=== PATIENT | female | born 1990 | race American Indian/Alaskan Native ===

== ENCOUNTER 2017-04-10 11:43 | Emergency (ER) | payer SELFPAY ==
[2017-04-10 12:36] VITALS: BP 111/76
[2017-04-10] MEDS ORDERED: CLEOCIN PO ONE (13:45)
[2017-04-10] MEDS ORDERED: NORCO 5/325 PO ONE (13:45)
[2017-04-10] MEDS ORDERED: ZOFRAN ODT PO ONE (13:45)
--- NOTE | 2017-04-10 13:49 | Emergency Department Report ---
ED ENT HPI - General Chief complaint: Dental/Oral Stated complaint: ABSCESS Time Seen by Provider: 04/10/17 13:37 Source: patient Mode of arrival: Ambulatory Limitations: No Limitations - History of Present Illness Initial comments: PT c/o L upper toothache and facial swelling. PT states she woke up with these symptoms. PT states she is unable to work due to her pain. PT states her last dental appointment was over 2 years ago and she was told that she needed to have her wisdom teeth removed. PT states she did not follow up with that. PT states she has not taken any medication for her symptoms. MD complaint: other (facial swelling ) -: This morning (woke up with symptoms ) Location: tooth # 1 - severe pain Severity: severe Severity scale (0 -10): 10 Quality: sharp, constant Consistency: constant Improves with: none Worsens with: eating, movement, other (palpation of face ) Context- Dental: history of dental caries, poor dental care Associated Symptoms: fever (pt states she has a fever currently, temp 99.6), sore throat. denies: gum swelling, toothache - Related Data Home Medications Medication Instructions Recorded Confirmed Last Taken Metoprolol Xl 1 tab PO DAILY 11/10/15 11/10/15 11/09/15 09:00 Previous Rx's Medication Instructions Recorded Last Taken Type Acetaminophen/Codeine [Tylenol #3] 1 tab PO Q6H PRN #12 tab 04/10/17 Unknown Rx Clindamycin [Clindamycin CAP] 300 mg PO Q8H #30 cap 04/10/17 Unknown Rx Allergies Allergy/AdvReac Type Severity Reaction Status Date / Time aspirin Allergy Unknown Verified 08/29/15 23:13 ED Dental HPI - General Chief complaint: Dental/Oral Stated complaint: ABSCESS Time Seen by Provider: 04/10/17 13:37 Source: patient Mode of arrival: Ambulatory Limitations: No Limitations - Related Data Home Medications Medication Instructions Recorded Confirmed Last Taken Metoprolol Xl 1 tab PO DAILY 11/10/15 11/10/15 11/09/15 09:00 Previous Rx's Medication Instructions Recorded Last Taken Type Acetaminophen/Codeine [Tylenol #3] 1 tab PO Q6H PRN #12 tab 04/10/17 Unknown Rx Clindamycin [Clindamycin CAP] 300 mg PO Q8H #30 cap 04/10/17 Unknown Rx Allergies Allergy/AdvReac Type Severity Reaction Status Date / Time aspirin Allergy Unknown Verified 08/29/15 23:13 ED Review of Systems ROS: Stated complaint: ABSCESS Other details as noted in HPI Comment: All other systems reviewed and negative Constitutional: fever (99.6). denies: chills Cardiovascular: denies: chest pain Gastrointestinal: abdominal pain (pt states she is hungry, has not eaten today ) . denies: nausea, vomiting, diarrhea, constipation Skin: other (facial swelling ) ED Past Medical Hx - Past Medical History Previous Medical History?: Yes Hx Hypertension: No Hx Diabetes: No Hx Deep Vein Thrombosis: No Hx Renal Disease: No Hx Sickle Cell Disease: No Hx Seizures: Yes Hx Asthma: No Hx HIV: No Additional medical history: SVT - Surgical History Past Surgical History?: Yes Additional Surgical History: Left hand tendon repair - Social History Smoking Status: Current Every Day Smoker Substance Use Type: Alcohol, Marijuana, Non Opiate Pain - Medications Home Medications: Home Medications Medication Instructions Recorded Confirmed Last Taken Type Metoprolol Xl 1 tab PO DAILY 11/10/15 11/10/15 11/09/15 09:00 History Acetaminophen/Codeine [Tylenol #3] 1 tab PO Q6H PRN #12 tab 04/10/17 Unknown Rx Clindamycin [Clindamycin CAP] 300 mg PO Q8H #30 cap 04/10/17 Unknown Rx ED Physical Exam - General Limitations: No Limitations General appearance: alert, in no apparent distress - Head Head exam: Present: atraumatic, normocephalic, other (mild swelling to L maxillary region, + ttp ) - Eye Eye exam: Present: normal appearance, PERRL, EOMI. Absent: conjunctival injection - ENT ENT exam: Present: normal orophraynx, mucous membranes moist - Expanded ENT Exam Expanded TM/Canal exam: Cerumen Impaction: Right TM, Left TM Mouth exam: Absent: drooling, trismus Teeth exam: Present: dental caries (widespread ), dental tenderness # (16) 1 - Dental Tenderness Throat exam: Positive: normal inspection. Negative: tonsillar erythema, tonsillomegaly, tonsillar exudate, R peritonsillar mass - Neck Neck exam: Present: normal inspection, tenderness, full ROM, lymphadenopathy - Respiratory Respiratory exam: Present: normal lung sounds bilaterally. Absent: respiratory distress, chest wall tenderness - Cardiovascular Cardiovascular Exam: Present: regular rate, normal rhythm - GI/Abdominal GI/Abdominal exam: Present: soft. Absent: tenderness - Extremities Exam Extremities exam: Present: normal inspection, full ROM - Back Exam Back exam: Present: normal inspection, full ROM. Absent: tenderness, CVA tenderness (R), CVA tenderness (L) - Neurological Exam Neurological exam: Present: alert, oriented X3 - Psychiatric Psychiatric exam: Present: normal affect, normal mood - Skin Skin exam: Present: warm, dry, intact, normal color ED Course Vital Signs 04/10/17 04/10/17 12:32 14:11 Temperature 99.6 F Pulse Rate 77 Respiratory 20 22 Rate Blood Pressure 111/76 O2 Sat by Pulse 100 Oximetry - Reevaluation(s) Reevaluation #1: 04/10/17 13:54 pt aware of dx and need for close dental follow up. No questions at this time - Pulse Oximetry Interpretation Digit-Finger Initial Pulse Oximetry Readin Actions Taken: none ED Medical Decision Making - Differential Diagnosis dental caries, dental abscess Critical Care Time: No Critical care attestation.: If time is entered above; I have spent that time in minutes in the direct care of this critically ill patient, excluding procedure time. ED Disposition Clinical Impression: Dental abscess Disposition: DISCHARGED TO HOME OR SELFCARE Is pt being admited?: No Does the pt Need Aspirin: No Condition: Stable Instructions: Dental Abscess (ED) Additional Instructions: No driving or ETOH after taking Tylenol #3 for pain Follow up with Dentist Prescriptions: Acetaminophen/Codeine [Tylenol #3] 1 tab PO Q6H PRN #12 tab PRN Reason: Pain , Severe (7-10) Clindamycin [Clindamycin CAP] 300 mg PO Q8H #30 cap Referrals: PRIMARY CARE, [Primary Care Provider] - 3-5 Days DARIEN RICHARD MD [Staff Physician] - 3-5 Days [facility] [Outside] - 3-5 Days [facility] [Outside] - 3-5 Days [facility] [Outside] - 3-5 Days Forms: Work/School Release Form(ED) Time of Disposition: 13:56
== END 2017-04-10 14:12 | disposition home or self-care (01) ==
LOC: ED 11:43
DX: K02.9 Dental caries, unspecified (principal); F17.200 Nicotine dependence, unspecified, uncomplicated; F12.10 Cannabis abuse, uncomplicated; R56.9 Unspecified convulsions; Z79.82 Long term (current) use of aspirin
CPT/HCPCS: 99282; Q0162

== ENCOUNTER 2017-05-09 17:10 | Emergency (ER) | payer SELFPAY ==
[2017-05-09 17:28] VITALS: BP 103/71
[2017-05-09 17:51] LABS: Basophils % (Auto) 0.3 % (0.0-1.8); Eosinophils % (Auto) 3.2 % (0.0-4.3); Hematocrit 36.4 % (30.3-42.9); Hemoglobin 11.9 gm/dl (10.1-14.3); Mean Corpuscular HGB Conc 33 % (30-34); Mean Corpuscular Hemoglobin 29 pg (28-32); Mean Corpuscular Volume 88 fl (79-97); Platelet Count 239 K/mm3 (140-440); Red Blood Count 4.13 M/mm3 (3.65-5.03); Red Cell Distribution Width 13.7 % (13.2-15.2); White Blood Count 6.8 K/mm3 (4.5-11.0)
[2017-05-09 17:59] LABS: Anion Gap 15 mmol/L; BUN/Creatinine Ratio 13.33; Blood Urea Nitrogen 8 mg/dL (7-17); Calcium 8.3 mg/dL (8.4-10.2); Carbon Dioxide 27 mmol/L (22-30); Chloride 101.9 mmol/L (98-107); Glucose 130 mg/dL (65-100); Potassium 3.6 mmol/L (3.6-5.0); Sodium 140 mmol/L (137-145)
== END 2017-05-09 21:20 | disposition left against medical advice (07) ==
LOC: ED 17:10
DX: R07.9 Chest pain, unspecified (principal); J45.909 Unspecified asthma, uncomplicated; F17.200 Nicotine dependence, unspecified, uncomplicated; Z88.6 Allergy status to analgesic agent; Z53.21 Procedure and treatment not carried out due to patient leaving prior to being seen by health care provider
CPT/HCPCS: 36415; 80048; 84484; 84703; 85025; 93005; 93010

== ENCOUNTER 2017-10-30 20:23 | Emergency (ER) | payer OTHER ==
[2017-10-30] MEDS ORDERED: MORPHINE IV ONE (20:39)
[2017-10-30] MEDS ORDERED: ZOFRAN IV ONE (20:39)
[2017-10-30 20:57] LABS: Hematocrit 38.7 % (30.3-42.9); Hemoglobin 12.4 gm/dl (10.1-14.3); Mean Corpuscular HGB Conc 32 % (30-34); Mean Corpuscular Hemoglobin 28 pg (28-32); Mean Corpuscular Volume 88 fl (79-97); Platelet Count 277 K/mm3 (140-440); Red Blood Count 4.38 M/mm3 (3.65-5.03); Red Cell Distribution Width 14.7 % (13.2-15.2)
[2017-10-30 21:10] LABS: INR 1.06 (0.87-1.13); Partial Thromboplastin Time 29.2 Sec. (24.2-36.6)
[2017-10-30 21:12] LABS: Anion Gap 21 mmol/L; BUN/Creatinine Ratio 15; Blood Urea Nitrogen 12 mg/dL (7-17); Carbon Dioxide 24 mmol/L (22-30); Chloride 97.3 mmol/L (98-107); Glucose 153 mg/dL (65-100); Potassium 3.4 mmol/L (3.6-5.0); Sodium 139 mmol/L (137-145)
[2017-10-30] MEDS ORDERED: NACL 0.9% 1000 ML 1,000 ML IV ONE (21:18)
[2017-10-30] MEDS ORDERED: ceFAZolin 1 GM in NACL 0.9% 20 ML IV SCH (21:30)
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
[2017-10-30 21:52] LABS: Basophils % (Manual) 0 % (0.0-1.8); Blastocytes % (Manual) 0 %
[2017-10-30 21:53] LABS: Anisocytosis Few; Diff Status Complete; Hypochromasia Few; Platelet Estimate Consistent w Auto
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
[2017-10-30] MEDS ORDERED: DILAUDID IV ONE (22:22)
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
[2017-10-30] MEDS ORDERED: LET TOPICAL TP ONE ×2 (23:18→23:19)
[2017-10-30] MEDS ORDERED: TRIPLE ANTIBIOTIC TP ONE (23:19)
[2017-10-30] MEDS ORDERED: NACL 0.9% 500 ML IR ONE (23:24)
[2017-10-30] MEDS ORDERED: NACL 0.9% IR ONE (23:29)
[2017-10-30] MEDS ORDERED: XYLOCAINE 1% 20 mL INFILTRATI ONE (23:29)
[2017-10-31] MEDS ORDERED: K-DUR PO ONE (00:25)
[2017-10-31] MEDS ORDERED: TRIPLE ANTIBIOTIC TP ONE (01:26)
[2017-10-31] MEDS ORDERED: PERCOCET 5/325 PO ONE (01:49)
[2017-10-31 02:12] VITALS: BP 118/76
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
== END 2017-10-31 02:12 | disposition home or self-care (01) ==
LOC: ED 20:23
DX: S82.831A Other fracture of upper and lower end of right fibula, initial encounter for closed fracture (principal); S61.411A Laceration without foreign body of right hand, initial encounter; V09.9XXA Pedestrian injured in unspecified transport accident, initial encounter; Y93.89 Activity, other specified; Y92.89 Other specified places as the place of occurrence of the external cause; Y99.8 Other external cause status
CPT/HCPCS: 12041; 29515; 36415; 70450; 71010; 72125; 72170; 73590; 73600; 80048; 84703; 85007; 85025; 85610; 85730; 86850; 86900; 86901; 96365; 96375; 99285; J0690; J1170; J2270; J2405; J7030; A6250

== ENCOUNTER 2018-03-04 19:26 | Emergency (ER) | payer SELFPAY | END 2018-03-04 20:10 | disposition left against medical advice (07) | LOC: ED 19:26 | DX: R10.9 Unspecified abdominal pain (principal); Z53.21 Procedure and treatment not carried out due to patient leaving prior to being seen by health care provider ==

== ENCOUNTER 2018-03-19 11:42 | Emergency (ER) | payer MEDICAID ==
[2018-03-19 11:55] VITALS: BP 90/59
== END 2018-03-19 13:18 | disposition left against medical advice (07) ==
LOC: ED 11:42
DX: O20.0 Threatened abortion (principal); Z3A.01 Less than 8 weeks gestation of pregnancy

== ENCOUNTER 2019-02-08 13:24 | Outpatient (CLI) | payer MEDICAID ==
[2019-02-08 13:52] VITALS: BP 114/70
[2019-02-08] MEDS ORDERED: LACTATED RINGERS 500 ML IV ONE (14:10)
[2019-02-08 14:54] LABS: Amphetamine Screen,Urine PRESUMPTIVE NEGATIVE; Benzodiazepines Screen,Urine PRESUMPTIVE NEGATIVE; Cocaine Screen,Urine PRESUMPTIVE NEGATIVE; Methadone Screen,Urine PRESUMPTIVE NEGATIVE; Opiate Screen,Urine PRESUMPTIVE NEGATIVE
[2019-02-08 15:14] LABS: Cannabinoid Screen,Urine PRESUMPTIVE POSITIVE
--- NOTE | 2019-02-08 16:37 | Ultrasound Report ---
US OB TRANSVAGINAL, US OB LIMITED CLINICAL INDICATION: Female, 28 years of age. abdominal pain; 27 weeks gestation COMPARISON: None. TECHNIQUE: Several real-time grayscale and color Doppler images were obtained. Permanent images were secured for documentation. Transabdominal and transvaginal exam. FINDINGS: Transvaginal exam performed for evaluation of cervical length. Cervix is closed and measure s 4.2 cm in length. Single live IUP. Estimated gestational age 27 weeks 2 days. This is by LMP. age not calculated on today's ultrasound. Estimated weight not provided. Limited exam performed. heart rate 149 bpm. Normal JANET 15.1 cm. Placenta location fundal and anterior. No placenta previa. No placental abruption. presentation cephalic. IMPRESSION: 1. Single live IUP. Estimated gestational age 27 weeks 2 days by LMP. 2. No placental abnormality. 3. presentation cephalic. Cervix is closed. This document is electronically signed by Artemoi Ramirez DO., February 08 2019 04:36:00 PM KACIE
[2019-02-08 16:57] LABS: Bilirubin,Urine NEG (Negative); Blood,Urine NEG (Negative); Color,Urine Yellow (Yellow); Mucus,Urine FEW /HPF; Protein,Urine <15 mg/dL mg/dL (Negative); RBC,Urine < 1.0 /HPF (0.0-6.0); Urobilinogen,Urine < 2.0 mg/dL (<2.0)
--- NOTE | 2019-02-08 17:53 | Progress Note ---
Assessment and Plan A: at 27 weeks, 3 days gestation. Abdominal pain. Not in labor; unable to do FFN due to recent IC. P: NST/EFM, ultrasound, urinalysis, and UDS. Discussed warning signs of PTL with patient. Advised patient to follow up at [facility] this week. Increase water intake. Subjective - Subjective Date of service: 02/08/19 Principal diagnosis: at 27 2/7 weeks gestation. Abdominal pain. Interval history: 28 year old female at 27 weeks, 2 days gestation presents complaining of abdominal pain. Patient reports active movement. Patient denies leaking of fluid or vaginal bleeding. Patient denies falls or abdominal trauma. Patient state she receives Braman injections weekly as she has a history of at 20 weeks gestation with a previous . Patient states she just had intercourse last night after midnight. Patient reports: movement normal, no loss of fluid, no vaginal bleeding, no contractions Objective - Vital Signs Vital Signs: Vital Signs - 12hr 02/08/19 13:42 Pulse Rate 76 Blood Pressure 114/70 - Exam Abdomen: Present: normal appearance, soft. Absent: distention, tenderness, guarding, rigidity Uterus: Present: normal, fundal height above umbilicus. Absent: tenderness FHR: category 1 (appropriate for gestational age) Cervical Dilatation: 0 Cervical Effacement Percentage: 0 station: high Uterine Contraction Pattern: Absent Extremities: normal - Labs Labs: Laboratory Results - last 24 hr 02/08/19 02/08/19 13:40 14:10 Urine Color Yellow Urine Turbidity Clear Urine pH 7.0 Ur Specific [place] 1.024 Urine Protein <15 mg/dl Urine Glucose (UA) Neg Urine Ketones Neg Urine Blood Neg Urine Nitrite Neg Urine Bilirubin Neg Urine Urobilinogen < 2.0 Ur Leukocyte Esterase Neg Urine WBC (Auto) 2.0 Urine RBC (Auto) < 1.0 U Epithel Cells (Auto) 5.0 Urine Mucus Few Urine Opiates Screen Presumptive negative Urine Methadone Screen Presumptive negative Ur Barbiturates Screen Presumptive negative Ur Phencyclidine Scrn Presumptive negative Ur Amphetamines Screen Presumptive negative U Benzodiazepines Scrn Presumptive negative Urine Cocaine Screen Presumptive negative U Marijuana (THC) Screen Presumptive positive Drugs of Abuse Note Disclamer
== END 2019-02-08 17:30 | disposition home or self-care (01) ==
LOC: TRG 13:24
PROVIDERS: ATTEND Obstetrics & Gynecology
DX: O47.02 False labor before 37 completed weeks of gestation, second trimester (principal); Z3A.27 27 weeks gestation of pregnancy
CPT/HCPCS: 76815; 76817; 80307; 81001

== ENCOUNTER 2019-03-12 12:38 | Outpatient (CLI) | payer MEDICAID ==
[2019-03-12] MEDS ORDERED: LACTATED RINGERS 500 ML IV ONE (13:12)
[2019-03-12 13:43] VITALS: BP 107/67
[2019-03-12 14:12] LABS: Bilirubin,Urine NEG (Negative); Blood,Urine NEG (Negative); Color,Urine Yellow (Yellow); Mucus,Urine 1+ /HPF
== END 2019-03-12 15:37 | disposition home or self-care (01) ==
LOC: TRG 12:38
PROVIDERS: ATTEND Obstetrics & Gynecology
DX: O47.03 False labor before 37 completed weeks of gestation, third trimester (principal); Z3A.31 31 weeks gestation of pregnancy
CPT/HCPCS: 81001

== ENCOUNTER 2019-04-12 10:27 | Observation (INO) | payer MEDICAID ==
[2019-04-12] MEDS ORDERED: LACTATED RINGERS 1,000 ML IV ONE (12:00)
[2019-04-12 12:55] LABS: Bacteria,Urine 1+ /HPF (Negative); Bilirubin,Urine NEG (Negative); Blood,Urine NEG (Negative); Color,Urine Straw (Yellow); Protein,Urine <15 mg/dL mg/dL (Negative); Urobilinogen,Urine < 2.0 mg/dL (<2.0); WBC,Urine < 1.0 /HPF (0.0-6.0)
[2019-04-12] MEDS ORDERED: CELESTONE SOLUSPAN IM ONE (13:00)
[2019-04-12] MEDS ORDERED: LACTATED RINGERS 1,000 ML IV SCH ×2 (14:00→20:00)
[2019-04-12] MEDS ORDERED: COLACE PO PRN (19:37)
[2019-04-12] MEDS ORDERED: TYLENOL PO PRN (19:37)
--- NOTE | 2019-04-12 19:48 | History and Physical Report ---
History of Present Illness Date of examination: 04/12/19 Date of admission: 04/12/19 Chief complaint: Contractions History of present illness: 28 year old presents to L&D triage complaining of contractions since yesterday. Patient denies vaginal bleeding or leaking of fluid. Patient reports active movement. Patient receives care at [facility]; partial records available. LMP 07/24/18. EDC 05/08/19 (based on US). significant for the following: Seizure disorder (not on meds, saw neuro, no seizure during ), anemia, elevated 1 hour sugar test and unable to tolerate 3 hour OGTT (pt. is being managed like GDM), history of delivery. labs are as follows: O+, antibody screen negative, rubella immune, pap negative, hepatitis B surface antigen negative, HIV negative, RPR nonreactive, hemoglobin electrophoresis negative, GC negative, CT negative, trich negative, quad screen negative, GBS unknown. In triage, patient's cervix changed from 1 cm to 3.5 cm. Patient was hydrated with IV fluid bolus of Lactated Ringer solution and terb given. Patient received dose of Celestone. 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 denies: smoking, alcohol abuse, prescription drug abuse, IV drug use - Obstetrical History Expected Date of Delivery: 05/08/19 Actual Gestation: 36 Week(s) 2 Day(s) : 4 Para: 2 Hx # Term Pregnancies: 1 Number of Pregnancies: 1 Spontaneous Abortions: 1 Induced : 0 Number of Living Children: 1 Medications and Allergies Allergies Allergy/AdvReac Type Severity Reaction Status Date / Time aspirin Allergy Severe Anaphylaxis Verified 04/12/19 11:03 Home Medications Medication Instructions Recorded Confirmed Last Taken Type Ferrous Sulfate [Feosol 325 MG tab] 1 tab PO DAILY 04/12/19 04/12/19 04/12/19 09:00 History 1 Pnv,Calcium 72/Iron/Folic Acid 1 tab PO DAILY 04/12/19 04/12/19 04/12/19 09:00 History [Pnv Plus Multivit Tab] Active Meds: Active Medications Acetaminophen (Tylenol) 650 mg PO Q4H PRN PRN Reason: Pain MILD(1-3)/Fever >100.5/HASKINS Betamethasone Acet/Betameth SodPhos (Celestone Soluspan) 12 mg IM ONCE ONE Stop: 04/13/19 13:01 Docusate Sodium (Colace) 100 mg PO Q12H PRN PRN Reason: Constipation Fentanyl (Sublimaze) 100 mcg IV ONCE ONE Stop: 04/12/19 19:41 Lactated Ringer's (Lactated Ringers) 1,000 mls @ 125 mls/hr IV DIRECT BITA Lactated Ringer's (Lactated Ringers) 1,000 mls @ 125 mls/hr IV DIRECT BITA Multivitamins/Iron/Calcium ( Vitamin) 1 each PO QDAY BITA Review of Systems All systems: negative (contractions) - Vital Signs Vital signs: Vital Signs Pulse BP 81 120/73 04/12/19 10:45 04/12/19 10:45 Temp Pulse Resp BP Pulse Ox 98.6 F 59 L 18 128/72 99 04/12/19 19:24 04/12/19 19:24 04/12/19 19:24 04/12/19 19:18 04/12/19 10:46 - Physical Exam Abdomen: Positive: normal appearance, soft. Negative: distention, tenderness, guarding, rigidity Genitourinary (Female): Positive: normal external genitalia, normal perenium. Negative: perineal/vulvar lesions Vagina: Positive: normal moisture Uterus: Positive: enlarged Anus/Rectum: Positive: normal perianal skin Extremities: Positive: normal. Negative: tenderness, edema - Obstetrical FHR: category 1 Uterine Contraction Monitor Mode: External Cervical Dilatation: 3 Cervical Effacement Percentage: 80 station: -1 Uterine Contraction Pattern: Irregular Uterine Contraction Intensity: Mild Results Abnormal lab results 04/12/19 Range/Units 12:00 Urine pH 8.0 H (5.0-7.0) All other labs normal. Assessment and Plan A: at 36 weeks, 2 days gestation. contractions; threatened labor. History of . GBS unknown. P: Admit. Continuous EFM. Celestone IM every 24 hrs. times 2 doses. Urinalysis.
[2019-04-12] MEDS ORDERED: SUBLIMAZE IV ONE (20:00)
[2019-04-12] MEDS ORDERED: PHENERGAN PO ONE (23:15)
[2019-04-12] MEDS: STADOL IV PRN (23:53)
[2019-04-13] MEDS ORDERED: PHENERGAN ONE (03:09)
[2019-04-13] MEDS: STADOL IV PRN ×2 (03:10→08:15)
[2019-04-13] MEDS ORDERED: PRENATAL VITAMIN PO SCH (10:00)
--- NOTE | 2019-04-13 10:18 | Progress Note ---
Assessment and Plan - Patient Problems (1) 36 weeks gestation of Current Visit: Yes Status: Acute (2) labor in third trimester Current Visit: Yes Status: Acute Qualifiers: labor delivery status: without delivery Qualified Code(s): O60.03 - labor without delivery, third trimester Plan to address problem: Continue current management Second dose of celestone due @ 13:37 If no cervical change, will discharge home with labor precautions and f/u at the clinic in 1 week Subjective - Subjective Date of service: 04/13/19 Principal diagnosis: IUP @ 36w3d; PTL Interval history: see H&P Patient reports: loss of fluid, movement normal, contractions (occasional; mild), no vaginal bleeding Objective - Vital Signs Vital Signs: Vital Signs - 12hr 04/12/19 04/12/19 04/13/19 23:06 23:49 08:12 Temperature 98.2 F 97.9 F Pulse Rate 73 Respiratory 16 18 Rate Blood Pressure 127/79 04/13/19 08:14 Temperature Pulse Rate 69 Respiratory Rate Blood Pressure 126/72 - Exam FHR: auscultation normal, category 1 FHR comments: baseline 130, moderate variability, 15x15 accels, no decels Uterine Contraction Monitor Mode: External Cervical Dilatation: 3.5 Cervical Effacement Percentage: 70 station: -3 Uterine Contraction Pattern: Irregular Extremities: normal - Labs Labs: Abnormal Labs 04/12/19 12:00 Urine pH 8.0 H Laboratory Results - last 24 hr 04/12/19 12:00 Urine Color Straw Urine Turbidity Clear Urine pH 8.0 H Ur Specific [place] 1.008 Urine Protein <15 mg/dl Urine Glucose (UA) Neg Urine Ketones 20 Urine Blood Neg Urine Nitrite Neg Urine Bilirubin Neg Urine Urobilinogen < 2.0 Ur Leukocyte Esterase Neg Urine WBC (Auto) < 1.0 Urine RBC (Auto) 1.0 U Epithel Cells (Auto) 2.0 Urine Bacteria (Auto) 1+
[2019-04-13 12:48] VITALS: BP 174/81
[2019-04-13] MEDS ORDERED: CELESTONE SOLUSPAN IM ONE (13:00)
== END 2019-04-13 15:05 | disposition home or self-care (01) ==
LOC: TRG 10:27 → LD 22:44
PROVIDERS: ADMIT Obstetrics & Gynecology; ATTEND Obstetrics & Gynecology
DX: O62.9 Abnormality of forces of labor, unspecified (principal); O99.343 Other mental disorders complicating pregnancy, third trimester; G40.909 Epilepsy, unspecified, not intractable, without status epilepticus; Z98.890 Other specified postprocedural states; O60.03 Preterm labor without delivery, third trimester
CPT/HCPCS: 59025; 81001; 96372; 96374; 96375; 96376; G0378; J0595; J0702; J3010; J7120; Q0169

== ENCOUNTER 2019-09-17 08:34 | Emergency (ER) | payer MEDICAID, OTHER ==
[2019-09-17 08:42] VITALS: BP 124/79
[2019-09-17] MEDS ORDERED: IBUPROFEN 600 MG TAB PO ONE (08:57)
[2019-09-17] MEDS ORDERED: CLINDAMYCIN 600 MG/50 mL 600 MG/50 ML BAG IV ONE (08:58)
[2019-09-17] MEDS ORDERED: traMADol 50 MG TAB PO ONE (09:02)
--- NOTE | 2019-09-17 09:03 | Emergency Department Report ---
ED ENT HPI - General Chief complaint: Dental/Oral Stated complaint: LFT SIDE ABCESS/PAIN/SWELLING Time Seen by Provider: 09/17/19 08:52 Source: patient Mode of arrival: Ambulatory Limitations: No Limitations - History of Present Illness Initial comments: 29-year-old -[place] female presents to the ED with complaint of abscess to her left side of mouth 3 days. Patient states that she's been taking Aleve has not helped much with her pain. Patient reports that the swelling has gotten worse. Patient reports an allergy to aspirin. Patient denies taking any current medications on a daily basis. Patient denies any fever or chills no nausea no vomiting. Patient does report that the swelling is radiating down to the left side of her neck. MD complaint: tooth pain Onset/Timin -: days(s) Location: tooth # Severity: severe Severity scale (0 -10): 10 Quality: aching, sharp Consistency: constant Improves with: none Context- Dental: history of dental caries, poor dental care Associated Symptoms: gum swelling, toothache. denies: cough, pain with swallowing, sore throat, tinnitus, hearing loss - Related Data Home Medications Medication Instructions Recorded Confirmed Last Taken Ferrous Sulfate [Feosol 325 MG tab] 1 tab PO DAILY 04/12/19 04/12/19 04/12/19 09:00 1 Pnv,Calcium 72/Iron/Folic Acid 1 tab PO DAILY 04/12/19 04/12/19 04/12/19 09:00 [Pnv Plus Multivit Tab] Previous Rx's Medication Instructions Recorded Last Taken Type Clindamycin [Clindamycin CAP] 300 mg PO Q8H #30 cap 09/17/19 Unknown Rx Naproxen 500 mg PO BID PRN #20 tablet 09/17/19 Unknown Rx Allergies Allergy/AdvReac Type Severity Reaction Status Date / Time aspirin Allergy Severe Anaphylaxis Verified 04/12/19 11:03 ED Dental HPI - General Chief complaint: Dental/Oral Stated complaint: LFT SIDE ABCESS/PAIN/SWELLING Time Seen by Provider: 09/17/19 08:52 Source: patient Mode of arrival: Ambulatory Limitations: No Limitations - Related Data Home Medications Medication Instructions Recorded Confirmed Last Taken Ferrous Sulfate [Feosol 325 MG tab] 1 tab PO DAILY 04/12/19 04/12/19 04/12/19 09:00 1 Pnv,Calcium 72/Iron/Folic Acid 1 tab PO DAILY 04/12/19 04/12/19 04/12/19 09:00 [Pnv Plus Multivit Tab] Previous Rx's Medication Instructions Recorded Last Taken Type Clindamycin [Clindamycin CAP] 300 mg PO Q8H #30 cap 09/17/19 Unknown Rx Naproxen 500 mg PO BID PRN #20 tablet 09/17/19 Unknown Rx Allergies Allergy/AdvReac Type Severity Reaction Status Date / Time aspirin Allergy Severe Anaphylaxis Verified 04/12/19 11:03 ED Review of Systems ROS: Stated complaint: LFT SIDE ABCESS/PAIN/SWELLING Other details as noted in HPI Comment: All other systems reviewed and negative Constitutional: no symptoms reported ED Past Medical Hx - Past Medical History Previous Medical History?: Yes Hx Hypertension: No Hx Diabetes: No Hx Deep Vein Thrombosis: No Hx Renal Disease: No Hx Sickle Cell Disease: No Hx Seizures: Yes (2 years ago) Hx Asthma: No Hx HIV: No Additional medical history: SVT - Surgical History Past Surgical History?: Yes Additional Surgical History: Left hand tendon repair - Social History Smoking Status: Current Every Day Smoker Substance Use Type: None - Medications Home Medications: Home Medications Medication Instructions Recorded Confirmed Last Taken Type Ferrous Sulfate [Feosol 325 MG tab] 1 tab PO DAILY 04/12/19 04/12/19 04/12/19 09:00 History 1 Pnv,Calcium 72/Iron/Folic Acid 1 tab PO DAILY 04/12/19 04/12/19 04/12/19 09:00 History [Pnv Plus Multivit Tab] Clindamycin [Clindamycin CAP] 300 mg PO Q8H #30 cap 09/17/19 Unknown Rx Naproxen 500 mg PO BID PRN #20 tablet 09/17/19 Unknown Rx ED Physical Exam - General Limitations: No Limitations General appearance: alert, in no apparent distress - Head Head exam: Present: atraumatic, normocephalic - Eye Eye exam: Present: normal appearance - Expanded ENT Exam Expanded Teeth exam: Present: dental caries, dental tenderness #, gingival enlargement - Neck Neck exam: Present: tenderness, full ROM, lymphadenopathy - Neurological Exam Neurological exam: Present: alert, oriented X3, normal gait - Psychiatric Psychiatric exam: Present: normal affect, normal mood - Skin Skin exam: Present: warm, dry, intact, normal color. Absent: rash ED Course Vital Signs 09/17/19 08:40 Temperature 98.1 F Pulse Rate 66 Respiratory 16 Rate Blood Pressure 124/79 O2 Sat by Pulse 98 Oximetry ED Medical Decision Making - Medical Decision Making 29-year-old -[place] female presents to the ED with complaint of abscess to her left side of mouth 3 days. Patient states that she's been taking Aleve has not helped much with her pain. Patient reports that the swelling has gotten worse. Patient reports an allergy to aspirin. Patient denies taking any current medications on a daily basis. Patient denies any fever or chills no nausea no vomiting. Patient does report that the swelling is radiating down to the left side of her neck. IV insertion with clindamycin 600 mg IV trauma in all 50 mg for pain management. Patient will be discharged home on clindamycin 300 mg 3 times a day 30 days and a referral to dental. Critical care attestation.: If time is entered above; I have spent that time in minutes in the direct care of this critically ill patient, excluding procedure time. ED Disposition Clinical Impression: Dental abscess Disposition: DC-01 TO HOME OR SELFCARE Is pt being admited?: No Does the pt Need Aspirin: No Condition: Stable Instructions: Dental Abscess (ED) Prescriptions: Clindamycin [Clindamycin CAP] 300 mg PO Q8H #30 cap Naproxen 500 mg PO BID PRN #20 tablet PRN Reason: Pain , Severe (7-10) Referrals: [facility] [Outside] - 3-5 Days [facility] [Outside] - 3-5 Days
== END 2019-09-17 10:15 | disposition home or self-care (01) ==
LOC: ED 08:34
DX: K04.7 Periapical abscess without sinus (principal); F17.200 Nicotine dependence, unspecified, uncomplicated; Z79.899 Other long term (current) drug therapy; Z88.6 Allergy status to analgesic agent
CPT/HCPCS: 96365

== ENCOUNTER 2019-12-16 07:59 | Emergency (ER) | payer SELFPAY ==
[2019-12-16 11:29] LABS: Basophils % (Auto) 0.3 % (0.0-1.8); Eosinophils # (Auto) 0.1 K/mm3 (0.0-0.4); Eosinophils % (Auto) 0.9 % (0.0-4.3); Hematocrit 36.4 % (30.3-42.9); Lymphocytes # (Auto) 1.8 K/mm3 (1.2-5.4); Mean Corpuscular HGB Conc 33 % (30-34); Mean Corpuscular Volume 87 fl (79-97); Monocytes # (Auto) 0.6 K/mm3 (0.0-0.8); Monocytes % (Auto) 8.1 % (0.0-7.3); Platelet Count 287 K/mm3 (140-440); Red Blood Count 4.17 M/mm3 (3.65-5.03); Red Cell Distribution Width 14.3 % (13.2-15.2)
[2019-12-16] MEDS ORDERED: ONDANSETRON 4 MG/2 ML INJ IV ONE (12:05)
[2019-12-16] MEDS ORDERED: SODIUM CHLORIDE 0.9% 1000 ML 1,000 ML IV ONE (12:05)
[2019-12-16] MEDS ORDERED: ACETAMINOPHEN 325 MG TAB PO ONE (12:05)
[2019-12-16 12:07] VITALS: BP 123/82
[2019-12-16 12:15] LABS: Alanine Aminotransferase 13 units/L (7-56); Albumin 4.1 g/dL (3.9-5); BUN/Creatinine Ratio 13; Blood Urea Nitrogen 5 mg/dL (7-17); Calcium 8.9 mg/dL (8.4-10.2); Hemolysis Index 1
--- NOTE | 2019-12-16 12:15 | Emergency Department Report ---
HPI - General Chief Complaint: Chest Pain Time Seen by Provider: 12/16/19 11:56 - HPI HPI: 29-year-old female presents to the emergency department with the complaint of having a seizure yesterday and having some intermittent chest pains for the past 1-2 days. The patient is currently about 10 weeks saying that her last menstrual cycle was 09/11/19. With this patient is . She has one child that from a traumatic accident and her most recent she did deliver the child but the child had underdeveloped lungs and only lived for about 24 hours. The patient has had some high-risk secondary to her history of seizures but she appears to only have a seizure or seizure-like activity when she is and is not on any seizure medications. The patient's significant other is at bedside and says that the patient was laying in bed when she had an unresponsive episode in which she was staring off and then suddenly appeared postictal and sleeping with concern for a seizure. The patient says that the chest pain mostly occurs when she is having vomiting and it feels like something is stuck in the chest. She has not taken anything for her symptoms prior to presentation. She does not have a current CAREERS COUNSELLOR but previously followed with, and plans to follow with, [facility]. The patient also complains of some lower abdominal and/or pelvic discomfort and fullness. No dysuria, vaginal bleeding, vaginal discharge. ED Past Medical Hx - Past Medical History Previous Medical History?: Yes Hx Hypertension: No Hx Diabetes: No Hx Deep Vein Thrombosis: No Hx Renal Disease: No Hx Sickle Cell Disease: No Hx Seizures: Yes (2 years ago) Hx Asthma: No Hx HIV: No Additional medical history: SVT - Surgical History Past Surgical History?: Yes Additional Surgical History: Left hand tendon repair - Social History Smoking Status: Current Every Day Smoker Substance Use Type: None - Medications Home Medications: Home Medications Medication Instructions Recorded Confirmed Last Taken Type Ferrous Sulfate [Feosol 325 MG tab] 1 tab PO DAILY 04/12/19 04/12/19 04/12/19 09:00 History 1 Clindamycin [Clindamycin CAP] 300 mg PO Q8H #30 cap 09/17/19 Unknown Rx Naproxen 500 mg PO BID PRN #20 tablet 09/17/19 Unknown Rx Pnv,Calcium 72/Iron/Folic Acid 1 tab PO DAILY #30 12/16/19 Unknown Rx [Pnv Plus Multivit Tab] ED Review of Systems ROS: Stated complaint: CHEST PAIN/ Other details as noted in HPI Comment: All other systems reviewed and negative Constitutional: denies: chills, fever Eyes: denies: eye pain, vision change ENT: denies: ear pain, throat pain Respiratory: denies: cough, shortness of breath Cardiovascular: chest pain. denies: palpitations Gastrointestinal: abdominal pain, nausea, vomiting Genitourinary: denies: dysuria, discharge Musculoskeletal: denies: back pain, arthralgia Skin: denies: rash, lesions Neurological: denies: headache, weakness Physical Exam - Physical Exam Vital Signs: Vital Signs 12/16/19 12:06 Pulse Rate 67 Respiratory 17 Rate Blood Pressure 123/82 [Left] O2 Sat by Pulse 100 Oximetry Physical Exam: GENERAL: The patient is well-developed well-nourished. HEENT: Normocephalic. Atraumatic. Patient has moist mucous membranes. EYES: Extraocular motions are intact. NECK: Supple. Trachea is midline. CHEST/LUNGS: Clear to auscultation. There is no respiratory distress noted. HEART/CARDIOVASCULAR: Regular. There is no tachycardia. There is no murmur. ABDOMEN: Abdomen is soft. mild lower abd TTP. No guarding. Patient has normal bowel sounds. There is no abdominal distention. SKIN:Skin is warm and dry. . NEURO: The patient is awake, alert, and oriented. The patient is cooperative. Normal speech. MUSCULOSKELETAL: There is no tenderness or deformity. There is no evidence of acute injury. ED Course Vital Signs 12/16/19 12:06 Pulse Rate 67 Respiratory 17 Rate Blood Pressure 123/82 [Left] O2 Sat by Pulse 100 Oximetry ED Medical Decision Making - Lab Data Result diagrams: 12/16/19 10:45 12/16/19 10:45 - EKG Data -: EKG Interpreted by Me EKG shows normal: sinus rhythm, axis, intervals, QRS complexes, ST-T waves Rate: normal - EKG Data When compared to previous EKG there are: previous EKG unavailable Interpretation: normal EKG - Radiology Data Radiology results: report reviewed OBSTETRICAL ULTRASOUND HISTORY: . Abdominal pain. FINDINGS: Imaging was performed by transabdominally and endovaginally. A viable intrauterine is dated 10 weeks 3 days by ultrasound. heart tones are 137 bpm. The uterus is prominent in size. Negative for subchorionic hemorrhage. Right ovary measures 1.4 x 1.3 x 3.9 cm. Left ovary measures 3.2 x 1.7 x 3 cm. The left ovary contains a 1.2 cm complex area which is likely a corpus luteum cyst. IMPRESSION: 1. Viable intrauterine dated 10 weeks 3 days. 2. Prominent placenta is most likely incidental. This could be evaluated on follow-up ultrasound. 3. Suspect small corpus luteum cyst left ovary. Signer Name: Frank Pruett MD - Medical Decision Making This patient presents to the emergency department with a complaint of a seizure yesterday followed by some intermittent midsternal chest pain. Just complains of some lower abdominal pain while . No vaginal bleeding, dysuria, vaginal discharge. Beta hCG greater than 90,000. Transvaginal/obstetrical ultrasound shows viable intrauterine at 10 weeks and 3 days. Prominent placenta and suspected small corpus luteum cyst. An EKG was done that does not show any ST elevation DC or dysrhythmia. Labs have been unremarkable including CBC, metabolic panel, negative troponin and urinalysis. The patient has been reevaluated multiple times of multiple hours and does not have any current chest pain. She has been instructed to follow-up with her primary care physician regarding her seizure history, and to follow up with CAREERS COUNSELLOR regarding her . She will return to the emergency Department with any further seizure-like activity, worsening of her symptoms, or with any acute distress. - Differential Diagnosis costochondritis, GERD, , fibroids, miscarriage Critical Care Time: No Critical care attestation.: If time is entered above; I have spent that time in minutes in the direct care of this critically ill patient, excluding procedure time. ED Disposition Clinical Impression: Atypical chest pain Qualifiers: Weeks of gestation: 10 weeks Qualified Code(s): Z3A.10 - 10 weeks gestation of Disposition: DC-01 TO HOME OR SELFCARE Is pt being admited?: No Condition: Stable Instructions: Chest Pain (ED) Additional Instructions: Please follow up with your primary care physician and CAREERS COUNSELLOR in the next few days. Return to the emergency Department with any worsening of your symptoms or any acute distress. Prescriptions: Pnv,Calcium 72/Iron/Folic Acid [Pnv Plus Multivit Tab] 1 tab PO DAILY #30 Referrals: [facility] [Provider Group] - 3-5 Days [facility], [Primary Care Provider] - 3-5 Days Forms: Work/School Release Form(ED) Time of Disposition: 15:02 Heart Score - HEART Score History: Slightly suspicious EKG: Normal Age: < 45 Risk factors: No known risk factors Troponin: < normal limit HEART Score: 0 - Critical Actions Critical Actions: 0-3 pts:0.9-1.7%risk of adverse cardiac event.Candidate for discharge
--- NOTE | 2019-12-16 14:15 | Ultrasound Report ---
OBSTETRICAL ULTRASOUND HISTORY: . Abdominal pain. FINDINGS: Imaging was performed by transabdominally and endovaginally. A viable intrauterine pregnanc y is dated 10 weeks 3 days by ultrasound. heart tones are 137 bpm. The uterus is prominent in s ize. Negative for subchorionic hemorrhage. Right ovary measures 1.4 x 1.3 x 3.9 cm. Left ovary measures 3.2 x 1.7 x 3 cm. The left ovary contain s a 1.2 cm complex area which is likely a corpus luteum cyst. IMPRESSION: 1. Viable intrauterine dated 10 weeks 3 days. 2. Prominent placenta is most likely incidental. This could be evaluated on follow-up ultrasound. 3. Suspect small corpus luteum cyst left ovary. Signer Name: Frank Pruett MD Signed: 12/16/2019 2:11 PM Workstation Name: [id number]
[2019-12-16 14:44] LABS: Bacteria,Urine 1+ /HPF (Negative); Bilirubin,Urine NEG (Negative); Blood,Urine NEG (Negative); Color,Urine Yellow (Yellow); Mucus,Urine 1+ /HPF; Protein,Urine <15 mg/dL mg/dL (Negative); Urobilinogen,Urine < 2.0 mg/dL (<2.0)
== END 2019-12-16 15:15 | disposition home or self-care (01) ==
LOC: ED 07:59
DX: O26.891 Other specified pregnancy related conditions, first trimester (principal); R07.89 Other chest pain; R56.9 Unspecified convulsions; O21.9 Vomiting of pregnancy, unspecified; O99.331 Smoking (tobacco) complicating pregnancy, first trimester; Z79.899 Other long term (current) drug therapy; Z3A.10 10 weeks gestation of pregnancy
CPT/HCPCS: 36415; 76801; 76817; 80053; 81001; 82550; 84443; 84484; 84702; 85025; 93005; 93010; 96361; 96374; 99284; J2405; J7030